=== PATIENT | male | born 1980 | race Caucasian/White ===

== ENCOUNTER 2022-08-19 20:45 | Emergency (ER) | payer BC ==
[~2022-08-19] VITALS: Ht 172.7 cm; Wt 91.0 kg
[2022-08-19 20:50] VITALS: BP 140/72
== END 2022-08-20 00:10 | disposition left against medical advice (07) ==
LOC: ER 20:45
DX: Z53.21 Procedure and treatment not carried out due to patient leaving prior to being seen by health care provider (principal)